=== PATIENT | female | born 1980 | race Caucasian/White ===

== ENCOUNTER → 2024-08-31 | Outpatient (CLI) | payer OTHER ==
[2024-08-31 20:09] LABS: HCT 29.3 % (37.2-46.3); HGB 8.4 g/dL (12.0-15.0); MCH 19.6 pg (27.0-32.0); MCHC 28.7 g/dL (32.0-37.0); MCV 68.3 FL (80.0-97.0); NRBC Per 100 WBC 0 X 10*3/uL (0.00-0.01); Platelet Count 353 X 10*3/uL (140-440); RBC 4.29 X 10*6/uL (4.10-5.20); RDW 18.2 % (11.5-14.5); WBC 7.48 X 10*3/uL (4.50-10.00)
[2024-08-31 21:00] LABS: Chol/HDL Ratio 2.28 Ratio
[2024-08-31 21:01] LABS: ALT 16 U/L (8-44); AST 24 U/L (13-35); Albumin 4.3 g/dL (3.8-4.9); Albumin/Globulin Ratio 1.72 Ratio (1.60-3.17); Alkaline Phosphatase 91 U/L (41-126); Blood Urea Nitrogen 12.6 mg/dL (9.0-27.0); Calcium 9.5 mg/dL (8.7-10.3); Carbon Dioxide 19.6 mmol/L (21.6-31.8); Chloride 104 mmol/L (96-109); Globulin 2.5 g/dL (1.6-3.3); Glucose 83 mg/dL (70-110); LDL Cholesterol,Calculated 62.1 mg/dL (0.0-131.0); Potassium 3.6 mmol/L (3.5-5.5); Sodium 140 mmol/L (135-145); T4, Free (Free Thyroxine) 1.71 ng/dL (0.80-1.80); Total Bilirubin 0.2 mg/dL (0.3-1.2); Total Protein 6.8 g/dL (6.2-8.2)
[2024-08-31 21:20] LABS: Anisocytosis (M) 2+; Basophils # (A) 0.08 X 10*3/uL (0.00-0.10); Basophils % (A) 1.1 %; Elliptocytes 2+; Eosinophils # (A) 0.08 X 10*3/uL (0.04-0.35); Eosinophils % (A) 1.1 %; Hypochromasia (M) 2+; Lymphocytes # (A) 1.75 X 10*3/uL (0.90-5.00); Lymphocytes % (A) 23.4 %; Microcytosis (M) 2+; Monocytes # (A) 0.65 X 10*3/uL (0.20-1.00); Monocytes % (A) 8.7 %; Neutrophils # (A) 4.89 X 10*3/uL (1.80-7.70); Neutrophils % (A) 65.3 %; Stomatocytes 2+; Target Cells 2+
== END | disposition home or self-care (01) ==
LOC: LABWHC1 12:51
PROVIDERS: ATTEND Family Medicine
CPT/HCPCS: 36415; 80053; 80061; 83036; 84439; 84443; 84481; 85025